=== PATIENT | female | born 1965 | race Hispanic/Latino ===

== ENCOUNTER 2021-09-16 08:11 | Outpatient (CLI) | payer OTHER ==
[~2021-09-16 08:11] MED LIST: ATROPINE 0.1% (1 MG/10 ML) CARDIAC SYRINGE IV SCH; METOPROLOL TARTRATE 5 MG/5 ML INJ IV SCH; NITROGLYCERIN 0.4 MG TAB SUBL SL SCH
[2021-09-16] MEDS ORDERED: ATROPINE 1 MG/ML VIAL IV ONE (08:38)
[2021-09-16] MEDS ORDERED: SODIUM CHLORIDE 0.9% 500 ML 500 ML IV SCH (09:00)
[2021-09-16 09:16] LABS: Blood Urea Nitrogen 14 mg/dL (7-17); Calcium 9.4 mg/dL (8.4-10.2); Hemolysis Index 3
[2021-09-16 09:33] LABS: BUN/Creatinine Ratio 20
[2021-09-16 10:15] VITALS: BP 125/65
--- NOTE | 2021-09-16 11:14 | Cat Scan Report ---
CTA HEART WITH AND WITHOUT CONTRAST 09/16/2021 9:56 AM TECHNIQUE: Routine ECG-gated coronary CT angiography performed on a 64-channel system. 3-D/MIP reform ats were postprocessed. Note that this exam targets the heart and the entire chest was not imaged. CONTRAST: 100 cc of Omnipaque 350 HISTORY: Abnormal stress test COMPARISONS: none PREMEDICATION: See nurse's notes. FINDINGS: CARDIAC/CORONARY FINDINGS: Please see cardiology report in this particular case. EXTRACARDIAC/EXTRACORONARY FINDINGS: VISUALIZED LUNGS: unremarkable VISUALIZED MEDIASTINUM: unremarkable VISUALIZED CHEST WALL: unremarkable VISUALIZED UPPER ABDOMEN: Moderate hepatic steatosis. . IMPRESSION 1. Please see cardiology dictation in this particular case for the cardiac/coronary findings. 2. Moderate hepatic steatosis. DISCLAIMER: This is a combined radiology and cardiology interpretation. Cardiology is solely responsible for rep orting of cardiac and coronary findings. Radiology is solely responsible for reporting of the extrac ardiac and extracoronary findings. Signer Name: Garret Mittal Jr, MD Signed: 09/16/2021 11:10 AM Workstation Name: [id number]
--- NOTE | 2021-09-17 07:04 | CT Calcium Scoring Report ---
Coronary Calcium Score Date of service: 09/17/21 Procedure: High-resolution computed tomographic imaging of the chest was performed on09/16/21 with particular attention paid to the coronary arteries. Images from the examination were analyzed for the presence and extent of coronary artery calcification, using coronary calcium quantification software. The patient tolerated the procedure well and there were no complications. The results of the coronary calcification analysis are provided below. The patient scores are compared with published data related to scores for people of a similar age and the same gender. - Findings Left Anterior Descending Artery: 27.8 Right Coronary Artery(RCA): 0.6 Total Agatson Score: 28.4 Percentile Ranking: >75 Findings: Cardiac CTA Indication: chest pain Informed consent obtained Procedure: The patient was brought to the cardiac ct laboratory at [facility] in stable condition after a 4 hour fast. Heart rate was regulated by beta blockade. Sublingual ngt was administered. After data acquisition and reconstruction, the images were processed and reviewed on the computer workstation. Multiple phases of the cardiac cycle were assessed for image interpretation. Volume rendered images, multiplanar reformated images, and maximum intensity projections images were generated and reviewed A coronary calcium score was performed via the Ag atston method. A separate radiology assessment of the non cardiac structures in the field of view will be provided. Superior vena cava in the field of view appears normal Inferior vena cava in the filed of view appears normal Ascending aorta in the field of view appears normal Descending aorta in the field of view appears normal Pulmonary artery in the filed of view appears normal Pulmonary veins enter the left atrium appropriately Left ventricle appears normal Right Ventricle appears normal Left atrium appears normal Left atrial appendage appears normal Right atrium appears normal Interventricular septum appears normal Interatrial septum appears normal Aortic valve appears normal Mitral Valve appears normal Intracardiac mass: none Pericardial effusion: none Coronary Angiography: Dominance: right Origins: normal Left main: normal Left anterior descending coronary artery and diagonal branches: mild non obstructive calcified plaque in the proximal left anterior descending coronary artery resulting in luminal narrowing of approximately 25-50% Circumflex coronary artery and obtuse marginal branches: normal Right coronary artery: mild non obstructive calcified plaque resulting in luminal narrowing 25-50% the procedure was tolerated well. there were no procedural complications
== END 2021-09-16 10:17 | disposition home or self-care (01) ==
LOC: CATHLABREC 08:11 → CT 08:11 → CATHLABREC 10:17
PROVIDERS: ATTEND Specialist
DX: R94.39 Abnormal result of other cardiovascular function study (principal); K76.0 Fatty (change of) liver, not elsewhere classified
CPT/HCPCS: 36415; 75574; 80048; Q9967; J9280; J0461; J7040